=== PATIENT | female | born 1990 | race Asian ===

== ENCOUNTER 2024-12-21 10:19 | Emergency (ER) | payer OTHER ==
[~2024-12-21] VITALS: Ht 157.5 cm; Wt 58.0 kg
[2024-12-21 12:17] VITALS: TEMP 98.7
[2024-12-21 12:50] LABS: HCG, SERUM QUALITATIVE POSITIVE (NEGATIVE)
[2024-12-21 13:12] VITALS: BP 113/54; O2SAT 100
== END 2024-12-21 13:15 | disposition home or self-care (01) ==
LOC: M ED 10:19
DX: Z32.01 Encounter for pregnancy test, result positive (principal)

== ENCOUNTER 2025-02-08 21:49 | Emergency (ER) | payer OTHER ==
[~2025-02-08] VITALS: Ht 157.5 cm; Wt 61.5 kg
[2025-02-08 21:54] VITALS: TEMP 98.5
[2025-02-08 22:38] LABS: BASO % 0.4 % (0.0-1.0); EOS # 0.2 10^3/uL (0.0-0.5); HEMATOCRIT 37.3 % (36.0-47.0); HEMOGLOBIN 12.4 g/dl (12.0-15.5); LYMPH # 2.1 10^3/uL (1.5-5.0); LYMPH % 25.3 % (24.0-44.0); MEAN CORPUSCULAR HEMOGLOBIN 29.7 pg (27.0-33.0); MEAN CORPUSCULAR HGB CONC 33.2 g/dl (32.0-36.5); MEAN CORPUSCULAR VOLUME 89.4 fl (80.0-96.0); MONO # 0.5 10^3/uL (0.0-0.8); MONO % 5.9 % (2.0-8.0); NEUTROPHILS # 5.6 10^3/uL (1.5-8.5); PLATELET COUNT, AUTOMATED 184 10^3/uL (150-450); RED BLOOD COUNT 4.17 10^6/uL (4.00-5.40); WHITE BLOOD COUNT 8.4 10^3/uL (4.0-10.0)
[2025-02-08 22:55] LABS: KETONE, URINE AUTO RFX NEGATIVE (NEGATIVE); LEUKOCYTE ESTERASE UR AUTO RFX NEGATIVE (NEGATIVE); MUCUS, URINE RFX SMALL (NEGATIVE); NITRITE, URINE AUTO RFX NEGATIVE (NEGATIVE); RBC, URINE AUTO RFX 1 /HPF (0-3); SQUAM EPITHELIAL CELL UR AURFX 0 /HPF (0-6); WBC, URINE AUTO RFX 0 /HPF (0-3)
[2025-02-08 23:34] LABS: BLOOD UREA NITROGEN 8 MG/DL (9-23); CALCIUM LEVEL 9.1 MG/DL (8.5-10.1); CARBON DIOXIDE LEVEL 24 MMOL/L (20-31); CHLORIDE LEVEL 104 MMOL/L (98-107); CREATININE FOR GFR 0.45 MG/DL (0.55-1.30); GLOMERULAR FILTRATION RATE > 60.0 (>60); GLUCOSE, FASTING 83 MG/DL (60-100); POTASSIUM SERUM 3.7 MMOL/L (3.5-5.1); SODIUM LEVEL 140 MMOL/L (136-145)
[2025-02-08 23:49] LABS: HCG, SERUM QUANTITATIVE 101103.4 MIU/ML (<4.2)
[2025-02-09 01:19] VITALS: BP 106/61; O2SAT 98
== END 2025-02-09 01:22 | disposition home or self-care (01) ==
LOC: M ED 21:49
DX: O20.9 Hemorrhage in early pregnancy, unspecified (principal); Z3A.12 12 weeks gestation of pregnancy

== ENCOUNTER 2025-03-31 10:24 | Emergency (ER) | payer OTHER ==
[~2025-03-31] VITALS: Ht 157.5 cm; Wt 64.5 kg
[2025-03-31] MEDS ORDERED: PREN1CHW6 PO (10:30)
[2025-03-31] MEDS ORDERED: CETI10CH PO (12:11)
[2025-03-31 12:16] VITALS: BP 106/52; TEMP 98.2; O2SAT 100
== END 2025-03-31 12:24 | disposition home or self-care (01) ==
LOC: M ED 10:24
DX: J02.9 Acute pharyngitis, unspecified (principal); B34.1 Enterovirus infection, unspecified; Z79.810 Long term (current) use of selective estrogen receptor modulators (SERMs); Z79.899 Other long term (current) drug therapy

== ENCOUNTER 2025-07-06 06:12 | Emergency (ER) | payer OTHER ==
[~2025-07-06 06:12] MED LIST: CETI10CH PO; PREN1CHW6 PO
== END 2025-07-06 06:15 | disposition admitted as inpatient to this hospital (09) ==
LOC: M ED 06:12
DX: Z53.21 Procedure and treatment not carried out due to patient leaving prior to being seen by health care provider (principal)

== ENCOUNTER 2025-07-06 06:20 | Outpatient (CLI) | payer OTHER ==
[~2025-07-06] VITALS: Ht 157.5 cm; Wt 69.7 kg
== END 2025-07-06 07:45 | disposition home or self-care (01) ==
LOC: M LDO 06:20
PROVIDERS: ATTEND Obstetrics & Gynecology
DX: O26.853 Spotting complicating pregnancy, third trimester (principal); O09.513 Supervision of elderly primigravida, third trimester; Z3A.33 33 weeks gestation of pregnancy
CPT/HCPCS: 59025; G0463

== ENCOUNTER → 2025-07-28 | Outpatient (REF) | payer OTHER | LOC: M SFHCWAGY 10:28 | PROVIDERS: ATTEND Advanced Practice Midwife | DX: Z34.93 Encounter for supervision of normal pregnancy, unspecified, third trimester (principal); Z3A.36 36 weeks gestation of pregnancy ==

== ENCOUNTER 2025-08-21 02:14 | Inpatient (IN) | payer OTHER ==
[~2025-08-21] VITALS: Ht 157.5 cm; Wt 73.3 kg
[2025-08-21] VITALS (45 sets, daily range): BP systolic 100–152; BP diastolic 54–97; O2SAT 98
[2025-08-21] MEDS ORDERED: LIDOCAINE 1% MDV 20 ML VIAL INFIL PRN (04:25)
[2025-08-21] MEDS ORDERED: METHYLERGONOVINE MALEATE 0.2 MG/ML 1 ML VIAL IM PRN (04:25)
[2025-08-21] MEDS ORDERED: diphenhydrAMINE 50 MG/ML VIAL IV PRN (04:40)
[2025-08-21] MEDS ORDERED: NALOXONE INJ 0.4 MG/1 ML VIAL IV PRN (04:40)
[2025-08-21] MEDS ORDERED: ONDANSETRON 4MG 2ML VIAL IV PRN (04:40)
[2025-08-21] MEDS ORDERED: LR 500 ML IV PRN (04:40)
[2025-08-21] MEDS ORDERED: EPIDURAL/PCA KEYS XX PRN (04:40)
[2025-08-21] MEDS: LACTATED RINGER'S 1000 ML IV STA (04:55)
[2025-08-21] MEDS: PENICILLIN G POTASSIUM 5 MU IV 5 MU in DEXTROSE 5% (D5W) MINI-BAG PLU 100 ML IV STA (04:55)
[2025-08-21 04:57] LABS: PLATELET COUNT, AUTOMATED 148 10^3/uL (150-450)
[2025-08-21] MEDS: FENTANYL/ROPIVACAINE/NACL BAG 100 ML EPIDURAL SCH (05:25)
[2025-08-21 05:57] LABS: HIV 1&2 SCREEN NEGATIVE (NEGATIVE)
[2025-08-21 06:04] LABS: HEPATITIS C VIRUS ABY INDEX < 0.02 INDEX (<0.8)
[2025-08-21] MEDS: LR 1,000 ML IV SCH (06:38)
[2025-08-21] MEDS ORDERED: PEN G POT 3,000,000 UNIT/50 ML 3,000,000 UNIT in IV 1 EA IV SCH (08:25)
[2025-08-21] MEDS: PEN G POT 3,000,000 UNIT/50 ML 3,000,000 UNIT in IV 1 EA IV SCH (09:17)
[2025-08-21] MEDS ORDERED: LR 1,000 ML IV SCH (17:25)
[2025-08-21] MEDS: OXYTOCIN DRIP 30 UNITS in IV 1 EA IV SCH (17:35)
[2025-08-21 19:31] LABS: CORD GAS ABE V -7.8; CORD GAS HCO3 V 18.5 MMOL/L; CORD GAS O2 SAT V 61.8 %; CORD GAS PCO2 V 40.6 mmHg; CORD GAS PH V 7.277 UNITS; CORD GAS PO2 V 27.1 mmHg; CORD GAS SBC V 17.5 MMOL/L; CORD GAS TCO2 V 19.8 MMOL/L
[2025-08-21 19:33] LABS: CORD GAS ABE A -9.2; CORD GAS HCO3 A 20.4 MMOL/L; CORD GAS O2 SAT A 43.5 %; CORD GAS PCO2 A 58.9 mmHg; CORD GAS PH A 7.157 UNITS; CORD GAS PO2 A 22.1 mmHg; CORD GAS SBC A 16.0 MMOL/L; CORD GAS TCO2 A 22.2 MMOL/L
[2025-08-21] MEDS: TRANEXAMIC ACID INJection 1,000 MG in NS 100 ML IV PRN (19:44)
[2025-08-21] MEDS: OXYTOCIN DRIP 30 UNITS in IV 1 EA IV PRN (19:51)
[2025-08-21] MEDS ORDERED: CALCIUM CARBONATE 500 MG CHEW U/D PO PRN (20:05)
[2025-08-21] MEDS ORDERED: MOM 30 ML SUSPENSION UDC PO PRN (20:05)
[2025-08-21] MEDS ORDERED: RHOGAM 300MCG (1500IU) INJ IM SCH (20:05)
[2025-08-21] MEDS ORDERED: ANUSOL HC CREAM 30 GM TOP PRN (20:05)
[2025-08-21] MEDS ORDERED: DOCUSATE SODIUM 100 MG CAPSULE PO PRN (20:05)
[2025-08-21] MEDS: IBUPROFEN 800 MG TAB PO PRN (22:08)
[2025-08-22 05:53] VITALS: BP 117/56; O2SAT 98
[2025-08-22] MEDS: ACETAMINOPHEN 500 MG TAB PO PRN (06:43)
[2025-08-22] MEDS: FERROUS SULFATE 325 MG TAB PO SCH (09:00)
[2025-08-22] MEDS: PRENATAL VITAMINS CHEWABLE TABLET PO SCH (09:00)
[2025-08-22] MEDS: DIBUCAINE 1% OINTMENT 30 GM TOP PRN (09:01)
[2025-08-22 17:48] VITALS: BP 116/55; O2SAT 98
[2025-08-23 06:00] VITALS: BP 105/59; O2SAT 98
[2025-08-23] MEDS: MEASLES,MUMPS,RUBELLA VACCINE INJ (MMR-II) SC.IMMUN ONE (07:06)
[2025-08-23] MEDS: FLUZONE VACCINE TRIVALENT PF(25-26) 0.5ML SYRINGE IM.IMMUN ONE (08:12)
[2025-08-23] MEDS ORDERED: IBUP80TA PO (11:48)
[2025-08-23] MEDS ORDERED: PREN1CHW6 PO (11:48)
[2025-08-23] MEDS ORDERED: ACET-683 PO (11:48)
== END 2025-08-23 13:00 | disposition home or self-care (01) | DRG 807 ==
LOC: M LDO 02:14 → M LDI 04:25 → M OBS 21:57
PROVIDERS: ADMIT Advanced Practice Midwife; ATTEND Obstetrics & Gynecology
PROC: 10E0XZZ Delivery of Products of Conception, External Approach (ICD-10-PCS; principal; 2025-08-21)
PROC: 0KQM0ZZ Repair Perineum Muscle, Open Approach (ICD-10-PCS; 2025-08-21)
PROC: 10907ZC Drainage of Amniotic Fluid, Therapeutic from Products of Conception, Via Natural or Artificial Opening (ICD-10-PCS; 2025-08-21)
DX: O99.824 Streptococcus B carrier state complicating childbirth (principal); Z37.0 Single live birth; Z3A.39 39 weeks gestation of pregnancy; O70.1 Second degree perineal laceration during delivery